=== PATIENT | female | born 1980 ===

== ENCOUNTER 2019-08-21 09:38 | Outpatient (CLI) | payer OTHER | END 2019-08-21 09:40 | disposition home or self-care (01) | LOC: TOM 09:38 | DX: R10.32 Left lower quadrant pain (principal) ==

== ENCOUNTER 2019-08-21 12:08 | Inpatient (IN) | payer OTHER ==
[~2019-08-21] VITALS: Ht 160 cm; Wt 240.0 kg
--- NOTE | 2019-08-21 12:33 | NUR ---
PTE REFIERE DOLOR ABDOMINAL SE RAFFI S/V YSE UBIAC EN AREA DE OBSERVACION
--- NOTE | 2019-08-21 12:50 | NUR ---
SE EDUCA APTE SOBRE TX MEDICO ESTA REFIERE ENTENDER. SE RAFFI MUESTRAS DE LAB UTILIZANDO MEDIDAS ASEPTICAS. PTE CON H/L YA [place], SE VERIFICA PATNETICIDAD. SE ADMINISTRAN MEDS A PTE LO CUAL [place]OL[place]. PTE SE CONTINUA MONITORIANDO POR CAMBIOS.
--- NOTE | 2019-08-21 15:25 | NUR ---
PACIENTE ALERTA Y ORIENTADA X3. EN RON CON BARANDAS ELEVADA. RECIBIENDO 0.9 NSS DE 1,000ML BAJANDO 166ML/HR. PENDIENTE RESULTADOS DE LABORATORIO. SE MANTIENE BAJO OBSERVACION POR CAMBIOS SIGNIFICATIVOS.
== END 2019-08-28 16:58 | disposition home or self-care (01) | DRG 392 ==
LOC: ER 12:08 → SURH 19:21 → SURG 19:21 → SURH 20:07 → MEDJ 08-25 19:21
PROVIDERS: ADMIT Internal Medicine
PROC: 3E0336Z Introduction of Nutritional Substance into Peripheral Vein, Percutaneous Approach (ICD-10-PCS; 2019-08-22)
PROC: BW21Y0Z Computerized Tomography (CT Scan) of Abdomen and Pelvis using Other Contrast, Unenhanced and Enhanced (ICD-10-PCS; principal; 2019-08-24)
PROC: B54MZZZ Ultrasonography of Right Upper Extremity Veins (ICD-10-PCS; 2019-08-27)
DX: K57.20 Diverticulitis of large intestine with perforation and abscess without bleeding (principal); I82.621 Acute embolism and thrombosis of deep veins of right upper extremity; D62 Acute posthemorrhagic anemia; R31.0 Gross hematuria; N93.8 Other specified abnormal uterine and vaginal bleeding; E66.09 Other obesity due to excess calories